=== PATIENT | female | born 1975 | race Caucasian/White ===

== ENCOUNTER 2025-02-16 09:42 | Emergency (ER) | payer BC | END 2025-02-16 10:25 | disposition home or self-care (01) | LOC: VM.ED 09:42 | DX: M25.552 Pain in left hip (principal); M25.562 Pain in left knee; T45.1X5A Adverse effect of antineoplastic and immunosuppressive drugs, initial encounter | CPT/HCPCS: 99283; 99284 ==

== ENCOUNTER 2025-03-04 13:44 | Inpatient (IN) | payer BC ==
[2025-03-04] MEDS ORDERED: Sodium Chloride 0.9% 10 ML Syringe FLUSH PRN (14:08)
[2025-03-04 14:18] LABS: BASOPHILS PERCENT AUTO 2.5 % (0.2-1.2); HEMATOCRIT 19.3 % (33.0-47.0); LYMPHOCYTES ABSOLUTE AUTO 0.1 x10^3/uL (1.0-4.8); LYMPHOCYTES PERCENT AUTO 32.5 % (25.0-50.0); MEAN CORPUSCULAR HEMOGLOBIN 32.7 pg (26.0-32.0); MEAN CORPUSCULAR HGB CONC 36.3 g/dL (32.0-36.0); MEAN CORPUSCULAR VOLUME 90.2 fL (78.0-93.0); MONOCYTES PERCENT AUTO 7.5 % (2.0-11.0); NEUTROPHILS ABSOLUTE AUTO 0.2 x10^3/uL (1.8-7.7); NEUTROPHILS PERCENT AUTO 57.5 % (50.0-80.0); PLATELET COUNT,PLT 132 x10^3/uL (130-400); RED BLOOD CELL COUNT 2.14 x10^6/uL (4.00-5.50)
[2025-03-04] MEDS: Ondansetron 4 MG/2 ML SDV IVPUSH ONE (14:19)
[2025-03-04] MEDS: Lactated Ringers 1,000 ML IV ONE (14:19)
[2025-03-04 14:37] LABS: ALANINE AMINOTRANSFERASE,ALT 26 U/L (14-59); ALBUMIN 3.4 g/dL (3.4-5.0); ALKALINE PHOSPHATASE 104 U/L (46-116); ASPARTATE AMNIOTRANSFERASE,AST 18 U/L (15-37); BILIRUBIN TOTAL 0.5 mg/dL (0.2-1.0); BLOOD UREA NITROGEN,BUN 12 mg/dL (7-18); CALCIUM 8.5 mg/dL (8.5-10.1); CARBON DIOXIDE,CO2 31 mmol/L (21-32); CHLORIDE,CL 100 mmol/L (98-107); CREATININE 0.6 mg/dL (0.55-1.02); GLUCOSE RANDOM 109 mg/dL (70-99); MAGNESIUM 1.7 mg/dL (1.8-2.4); POTASSIUM,K 3.8 mmol/L (3.5-5.1); PROTEIN TOTAL,TP 6.8 g/dL (6.4-8.2); SODIUM,NA 137 mmol/L (136-145); WHITE BLOOD CELL COUNT,WBC 0.4 x10^3/uL (4.0-10.0)
[2025-03-04 14:41] LABS: ANION GAP 9.8 mmol/L (5-15); ESTIMATED GFR 109 mL/min (>=60)
[2025-03-04 14:59] LABS: LACTIC ACID 1.1 mmol/L (0.4-2.0)
[2025-03-04] MEDS ORDERED: Hydrocortisone 2.5% Crm 30 GM Tube TOP PRN (16:58)
[2025-03-04] MEDS ORDERED: Lidocaine 2% Viscous Solution 15 ML UD PO PRN (16:58)
[2025-03-04] MEDS ORDERED: Prochlorperazine 5 MG Tab PO PRN (16:58)
[2025-03-04] MEDS ORDERED: Ondansetron 4 MG Tab.DIS PO PRN (16:58)
[2025-03-04] MEDS ORDERED: Ondansetron 4 MG/2 ML SDV IVPUSH PRN (17:27)
[2025-03-04] MEDS: Lactated Ringers 1,000 ML IV SCH (18:18)
[2025-03-04 18:37] LABS: APPEARANCE,URINE CLEAR (CLEAR); BILIRUBIN,URINE NEGATIVE (NEGATIVE); COLOR,URINE YELLOW (YELLOW); GLUCOSE,URINE NEGATIVE (NEGATIVE); KETONES,URINE NEGATIVE (NEGATIVE); LEUKOCYTE ESTERASE,URINE NEGATIVE (NEGATIVE); NITRITE,URINE NEGATIVE (NEGATIVE); OCCULT BLOOD,URINE TRACE-INTACT (NEGATIVE); PH,URINE 7.5 (5.0-8.0); PROTEIN,URINE NEGATIVE (NEGATIVE); UROBILINOGEN,URINE 0.2 EU/dL (0.2)
[2025-03-04 18:48] LABS: BACTERIA,URINE RARE /HPF (NOT SEEN); EPITHELIAL CELLS,URINE FEW; RBC,URINE 0-5 /HPF (NOT SEEN); WBC,URINE 0-5 /HPF (NOT SEEN)
[2025-03-04] MEDS: LORazepam 1 MG Tab PO SCH (21:19)
[2025-03-05 06:44] LABS: BASOPHILS PERCENT AUTO 9.7 % (0.2-1.2); HEMATOCRIT 18.9 % (33.0-47.0); LYMPHOCYTES ABSOLUTE AUTO 0.2 x10^3/uL (1.0-4.8); LYMPHOCYTES PERCENT AUTO 54.8 % (25.0-50.0); MEAN CORPUSCULAR HEMOGLOBIN 31.9 pg (26.0-32.0); MEAN CORPUSCULAR HGB CONC 34.9 g/dL (32.0-36.0); MEAN CORPUSCULAR VOLUME 91.3 fL (78.0-93.0); MONOCYTES PERCENT AUTO 12.9 % (2.0-11.0); NEUTROPHILS ABSOLUTE AUTO 0.1 x10^3/uL (1.8-7.7); NEUTROPHILS PERCENT AUTO 22.6 % (50.0-80.0); PLATELET COUNT,PLT 118 x10^3/uL (130-400); RED BLOOD CELL COUNT 2.07 x10^6/uL (4.00-5.50)
[2025-03-05 07:07] LABS: A/G RATIO 1.03; ALBUMIN 3.3 g/dL (3.4-5.0); BILIRUBIN TOTAL 0.7 mg/dL (0.2-1.0); C-REACTIVE PROTEIN 2.93 mg/dL (<=0.50); CALCIUM 8.7 mg/dL (8.5-10.1); CREATININE 0.6 mg/dL (0.55-1.02); EST CRCL DRUG DOSING (CG) 92.79 mL/min; POTASSIUM,K 3.8 mmol/L (3.5-5.1); PROTEIN TOTAL,TP 6.5 g/dL (6.4-8.2)
[2025-03-05 07:14] LABS: HEMOGLOBIN 6.6 g/dL (12.0-16.0); WHITE BLOOD CELL COUNT,WBC 0.3 x10^3/uL (4.0-10.0)
[2025-03-05 07:15] LABS: ANION GAP 11.8 mmol/L (5-15)
[2025-03-05] MEDS ORDERED: Sodium Chloride 0.9% 10 ML Syringe FLUSH PRN (08:10)
[2025-03-05 14:11] LABS: HEMATOCRIT 22.5 % (33.0-47.0); HEMOGLOBIN 7.9 g/dL (12.0-16.0)
[2025-03-05] MEDS: Acetaminophen 325 MG Tab PO PRN (23:37)
[2025-03-05] MEDS: Hydrocortisone 2.5% Crm 30 GM Tube TOP PRN (23:38)
[2025-03-06 07:07] LABS: CALCIUM 8.8 mg/dL (8.5-10.1); CREATININE 0.6 mg/dL (0.55-1.02); EST CRCL DRUG DOSING (CG) 92.79 mL/min; HEMATOCRIT 22.6 % (33.0-47.0); MAGNESIUM 1.7 mg/dL (1.8-2.4); MEAN CORPUSCULAR HEMOGLOBIN 30.9 pg (26.0-32.0); MEAN CORPUSCULAR HGB CONC 35.4 g/dL (32.0-36.0); MEAN CORPUSCULAR VOLUME 87.3 fL (78.0-93.0); PLATELET COUNT,PLT 123 x10^3/uL (130-400); POTASSIUM,K 3.6 mmol/L (3.5-5.1); RED BLOOD CELL COUNT 2.59 x10^6/uL (4.00-5.50)
[2025-03-06 07:10] LABS: ANION GAP 12.6 mmol/L (5-15)
[2025-03-06 07:12] LABS: WHITE BLOOD CELL COUNT,WBC 0.5 x10^3/uL (4.0-10.0)
[2025-03-06] MEDS: Magnesium Oxide 400 MG Tab PO ONE (08:41)
[2025-03-06 09:28] LABS: ANISOCYTOSIS 1+ SLIGHT; BASOPHILS PERCENT MAN 4 % (0-1); BLASTS PERCENT MAN 3 % (0); LYMPHOCYTES ABSOLUTE MAN 0.3 x10^3/uL (1.0-4.8); LYMPHOCYTES PERCENT MAN 66 % (25-50); MONOCYTES ABSOLUTE MAN 0.1 x10^3/uL (0.0-0.8); MONOCYTES PERCENT MAN 15 % (2-11); NEUTROPHILS ABSOLUTE MAN 0.1 x10^3/uL (1.8-7.7); PLATELET COUNT ESTIMATE DECREASED; SEG NEUTROPHILS PERCENT MAN 12 % (50-80)
[2025-03-06] MEDS ORDERED: LORazepam 1 MG Tab PO SCH (21:00)
[2025-03-07 06:07] LABS: HCT 22.9 % (37.0-47.0); HGB 8.1 gm/dL (12.0-16.0); MCH 31.6 pg (28.0-32.0); MCHC 35.4 g/dL (32.0-36.0); MCV 90 fL (83-99); PLATELETS 139 x10-3 ul (150-400); RBC 2.56 x10-6 ul (4.10-5.30); WBC 0.5 x10-3 ul (3.9-11.3)
[2025-03-07 10:06] LABS: BANDS% 0 % (0-5); BASOPHILS% 5 % (0-1); BURR CELL 1+ /hpf; EOSINOPHILS% 0 % (0-6); LYMPH# 0.35 x10-3 ul (0.90-5.20); LYMPHOCYTES% 70 % (23-46); MONOCYTES% 15 % (2-11); MONOS# 0.08 x10-3 ul (0.08-1.24); NEUT# 0.05 x10-3 ul (1.60-8.02); NEUTROPHILS% 10 % (41-71); OVALOCYTE 2+ /hpf; PLT ESTIMATE Mild Dec; TEARDROP 1+ /hpf
== END 2025-03-06 10:20 | disposition home or self-care (01) | DRG 249 ==
LOC: VM.ED 13:44 → VM.MS 16:34
PROVIDERS: ADMIT Family Medicine; ATTEND Family Medicine
PROC: 30233N1 Transfusion of Nonautologous Red Blood Cells into Peripheral Vein, Percutaneous Approach (ICD-10-PCS; principal; 2025-03-04)
DX: K52.1 Toxic gastroenteritis and colitis (principal); D61.810 Antineoplastic chemotherapy induced pancytopenia; E86.0 Dehydration; C79.81 Secondary malignant neoplasm of breast; D61.818 Other pancytopenia; G89.29 Other chronic pain; M54.9 Dorsalgia, unspecified; D64.81 Anemia due to antineoplastic chemotherapy; T45.1X5A Adverse effect of antineoplastic and immunosuppressive drugs, initial encounter; R53.1 Weakness; M06.9 Rheumatoid arthritis, unspecified; F41.9 Anxiety disorder, unspecified; D70.8 Other neutropenia; I95.9 Hypotension, unspecified; E83.42 Hypomagnesemia; Z79.899 Other long term (current) drug therapy; Z98.891 History of uterine scar from previous surgery; Z98.51 Tubal ligation status; Z98.890 Other specified postprocedural states
CPT/HCPCS: 36415; 36430; 80048; 80053; 81001; 83605; 83735; 85008; 85014; 85018; 85025; 86140; 86850; 86900; 86901; 86920; 86922; 87040; 96361; 96374; 99284; 99285-25; A9270-GY; J2405; J7120; P9016